=== PATIENT | female | born 1970 | race Asian ===

== ENCOUNTER → 2017-05-06 | Outpatient (CLI) | payer BC ==
[~2017-05-06] MED LIST: ACET-1256 PO
--- NOTE | 2017-05-06 16:31 | DIAGNOSTIC IMAGING REPORT ---
L-SPINE MIN 4 VIEWS ROUTINE CLINICAL HISTORY: CHRONIC LOWER BACK PAIN COMPARISON: None FINDINGS: There are 5 lumbar type vertebra. There is slight straightening of the normal lumbar lordosis. Vertebral body heights are maintained. No fractures suspicious lesion. Disc spaces are preserved. There is minimal endplate osteophytosis at several levels. Sacroiliac joints are intact. IMPRESSION: 1. No lumbar spine fracture or subluxation. 2. Preserved lumbar spine disc spaces with minimal multilevel endplate osteophytosis. Electronically signed by: Ricky Nieto M.D. 05/06/2017 4:29 PM Dictated Date/Time: 05/06/2017 4:28 PM
--- NOTE | 2017-05-06 16:31 | DIAGNOSTIC IMAGING REPORT ---
SI JOINTS 3 OR MORE VIEWS CLINICAL HISTORY: CHRONIC LOWER BACK PAIN COMPARISON STUDY: None. FINDINGS: Large amount well-formed stool seen throughout the colon. No fractures identified within the sacrum. The bilateral sacroiliac joints are within normal limits. No erosions or sclerosis identified. IMPRESSION: Normal bilateral sacroiliac joints. Electronically signed by: Dov Oliver M.D. 05/06/2017 4:29 PM Dictated Date/Time: 05/06/2017 4:28 PM
== END | disposition home or self-care (01) ==
LOC: C.RAD1850 15:57
PROVIDERS: ATTEND Student in an Organized Health Care Education/Training Program
DX: M54.5 Low back pain (principal); G89.29 Other chronic pain; M25.78 Osteophyte, vertebrae

== ENCOUNTER → 2017-09-29 | Outpatient (CLI) | payer OTHER ==
--- NOTE | 2017-09-30 14:35 | MAMMOGRAPHY REPORT ---
BILATERAL DIGITAL SCREENING MAMMOGRAM TOMOSYNTHESIS WITH CAD: 09/29/2017 CLINICAL HISTORY: Routine screening. Patient has no complaints. TECHNIQUE: Breast tomosynthesis in addition to standard 2D mammography was performed. Current study was also evaluated with a Computer Aided Detection (CAD) system. COMPARISON: No prior exams were available for comparison. BREAST COMPOSITION: The tissue of both breasts is extremely dense, which lowers the sensitivity of m ammography. FINDINGS: There are 2 asymmetries within the left superior breast and left retroareolar breast on th e MLO view, which may represent normal overlapping fibroglandular tissue although spot compression to mosynthesis views and possible breast ultrasound are recommended for further evaluation. The remainder of both breasts demonstrate no suspicious masses, calcifications, or areas of client architect ural distortion. A linear scar marker denotes a scar on the right lateral breast. IMPRESSION: ACR BI-RADS CATEGORY 0: INCOMPLETE EVALUATION: NEED ADDITIONAL IMAGING EVALUATION Left breast asymmetries, for which additional imaging evaluation is recommended. The patient will be called to schedule an appointment. Approximately 10% of breast cancers are not detected with mammography. A negative mammographic report should not delay biopsy if a clinically suggestive mass is present. Zahida Land M.D. ah/:09/29/2017 16:32:01 Puttying And Calking Supervisor: Anju SMITH(Jose)(M), [facility] letter sent: Addl Imaging 0 BI-RADS Code: ACR BI-RADS Category 0: Incomplete Evaluation: Need Additional Imaging Evaluation
== END | disposition home or self-care (01) ==
LOC: C.MAMM 13:30
PROVIDERS: ATTEND Obstetrics & Gynecology
DX: Z12.31 Encounter for screening mammogram for malignant neoplasm of breast (principal); N64.9 Disorder of breast, unspecified

== ENCOUNTER → 2017-12-10 | Outpatient (CLI) | payer OTHER ==
--- NOTE | 2017-12-13 07:46 | MAMMOGRAPHY REPORT ---
UNILATERAL LEFT DIGITAL DIAGNOSTIC MAMMOGRAM TOMOSYNTHESIS AND TARGETED LEFT ULTRASOUND: 12/10/2017 CLINICAL HISTORY: Callback from screening mammogram for left breast asymmetries. TECHNIQUE: Breast tomosynthesis in addition to standard 2D mammography was performed. Full-field an d spot compression left MLO 2D and tomosynthesis images were obtained. COMPARISON: Comparison is made to exam dated: 09/29/2017 mammogram - [facility]. BREAST COMPOSITION: The tissue of the left breast is extremely dense, which lowers the sensitivity o f mammography. FINDINGS: The previously described asymmetry seen within the left superior and retroareolar breast ef faced on the additional views and have the appearance of normal fibroglandular tissue on the addition al tomosynthesis images. There are no suspicious masses, areas of architectural distortion, or other suspicious findings seen on the additional views. Targeted ultrasound was performed of the areas of the asymmetries in the left superior breast as well as the left breast at 3:00, 9:00, and subareolar region. In the left 3:00 periareolar breast, there is an oval anechoic benign simple cyst measuring 6 mm. Another oval anechoic benign simple cyst lilly suring 8 mm is seen within the left breast at 3:00, 4 cm from the nipple. A hypoechoic benign-appear ing 5 x 3 mm mass is seen within the left 12:00 breast, 1 cm from the nipple. Another slightly hypoe choic parallel circumscribed 9 x 6 mm mass is seen within the left breast at 9:00, 3 cm from the nipp le, which is probably benign and may represent a normal fat lobule versus fibroadenoma. An anechoic benign simple cyst measuring 4 mm is seen within the left 9:00 breast, 2 cm from the nipple. An isoe choic 3 x 5 x 3 mm mass is seen within the left 11:00 breast, 3 cm from the nipple, which is probably benign and may represent a fat lobule or fibroadenoma. In the left breast at 1:00, 2 cm in the nipp le, there is a circumscribed oval mixed anechoic and hypoechoic 5 x 2 x 4 mm mass which is probably b enign and likely represents a complicated cyst. No suspicious masses were evident. IMPRESSION: ACR-BI-RADS CATEGORY 3: PROBABLY BENIGN, TARGETED ULTRASOUND ACR-BI-RADS CATEGORY 3: PRO BABLY BENIGN 1. The left breast asymmetries efface on the additional views, and are benign and compatible with no rmal fibroglandular tissue. 2. A few hypoechoic and isoechoic masses are seen incidentally on ultrasound in the left 12:00, 11:0 0, 9:00, and 1:00 breast, which are probably benign and follow-up targeted ultrasound of the left radha ast is recommended in 6 months to confirm stability. The patient has been verbally notified of the results. Approximately 10% of breast cancers are not detected with mammography. A negative mammographic report should not delay biopsy if a clinically suggestive mass is present. Zahida Land M.D. ah/:12/10/2017 15:51:11 Field Ring Assembler: Michele HURLEY)(M), [facility] letter sent: Follow Up Recommended 3 BI-RADS Code: ACR-BI-RADS Category 3: Probably Benign Ultrasound BI-RADS: ACR-BI-RADS Category 3: Pr obably Benign
== END | disposition home or self-care (01) ==
LOC: C.MAMM 13:59
PROVIDERS: ATTEND Obstetrics & Gynecology
DX: N63.20 Unspecified lump in the left breast, unspecified quadrant (principal)